=== PATIENT | female | born 1955 | race Caucasian/White ===

== ENCOUNTER → 2017-03-09 | Outpatient (CLI) | payer BC | LOC: HEART 5 12:08 | DX: J45.909 Unspecified asthma, uncomplicated (principal); K21.9 Gastro-esophageal reflux disease without esophagitis | CPT/HCPCS: 71020-FX; 94060; 94729 ==

== ENCOUNTER → 2017-03-09 | Outpatient (CLI) | payer BC | LOC: RT 13:26 | DX: J45.40 Moderate persistent asthma, uncomplicated (principal); R09.02 Hypoxemia; K21.9 Gastro-esophageal reflux disease without esophagitis | CPT/HCPCS: 36415; 36600; 82785; 82803 ==

== ENCOUNTER → 2021-01-28 | Outpatient (CLI) | payer BC | LOC: HEART 5 08:22 | DX: I20.8 Other forms of angina pectoris (principal); R06.02 Shortness of breath | CPT/HCPCS: 78452; 93306; A9502; J2785 ==